=== PATIENT | male | born 1940 | race Caucasian/White ===

== ENCOUNTER 2016-10-25 17:26 | Inpatient (IN) | payer MEDICARE, BC ==
[~2016-10-25] VITALS: Ht 167.6 cm; Wt 81.2 kg
[2016-10-25 17:40] LABS: HEMOGLOBIN 16.1 gm/dl (14.0-17.5); RED BLOOD COUNT 5.3 M/UL (4.20-5.50); WHITE BLOOD COUNT 7.4 K/UL (4.5-11.0)
[2016-10-25 18:00] LABS: BUN/CREATININE RATIO 24 (0-10)
[2016-10-26] MEDS ORDERED: CYMBALTA30 MG PO (02:46)
[2016-10-26] MEDS ORDERED: NORVASC 5 MG TAB5 MG PO (02:46)
[2016-10-26] MEDS ORDERED: PERCOCET 10-321 EACH PO (02:47)
[2016-10-26] MEDS ORDERED: PRIMIDONE50 MG PO (02:48)
[2016-10-26] MEDS ORDERED: PRAVACHOL80 MG PO (02:48)
[2016-10-27] MEDS ORDERED: LEVAQUIN TAB 5500 MG PO (11:46)
[2016-10-27] MEDS ORDERED: TYLENOL W/CODEIN1 E1 PO (11:47)
== END 2016-10-27 13:00 | disposition home or self-care (01) | DRG 244 ==
LOC: ER1 17:26 → CCU 20:17 → ZEROF 20:17 → CCU 10-26 02:46
PROVIDERS: Emergency Medicine; ADMIT Hospitalist
PROC: 0JH606Z Insertion of Pacemaker, Dual Chamber into Chest Subcutaneous Tissue and Fascia, Open Approach (ICD-10-PCS; principal; 2016-10-26)
PROC: 02HK3JZ Insertion of Pacemaker Lead into Right Ventricle, Percutaneous Approach (ICD-10-PCS; principal; 2016-10-26)
PROC: 02H63JZ Insertion of Pacemaker Lead into Right Atrium, Percutaneous Approach (ICD-10-PCS; principal; 2016-10-26)
DX: I44.1 Atrioventricular block, second degree (principal); R00.1 Bradycardia, unspecified; R55 Syncope and collapse; F39 Unspecified mood [affective] disorder; I10 Essential (primary) hypertension; R53.1 Weakness; R53.81 Other malaise; F41.9 Anxiety disorder, unspecified; G89.4 Chronic pain syndrome; E78.5 Hyperlipidemia, unspecified; Z88.0 Allergy status to penicillin; Z87.891 Personal history of nicotine dependence; Z87.81 Personal history of (healed) traumatic fracture; Z79.899 Other long term (current) drug therapy; Z79.891 Long term (current) use of opiate analgesic
CPT/HCPCS: ECHO; 33208; 36415; 71010; 80053; 82550; 82553; 83735; 83874; 83880; 84439; 84443; 84484; 85025; 85610; 85730; 93005; 93306; 94640; 99285; C1785; C1898; J0461; J1200; J1644; J2250; J2270; J2405; J3010; J3370; J7040; J7050; J7070